=== PATIENT | male | born 1975 | race Caucasian/White ===

== ENCOUNTER 2018-04-10 16:29 | Emergency (ER) | payer OTHER ==
[~2018-04-10] VITALS: Ht 182.9 cm; Wt 86.6 kg
[~2018-04-10 16:29] MED LIST: DIVALPROEX ER PO; RISPERIDONE PO; SEROQUEL XR PO; STRATTERA PO; WELLBUTRIN SR150 M PO
[2018-04-10 16:36] VITALS: Ht 182.9 cm; Wt 86.6 kg
[2018-04-10 16:58] VITALS: BP 130/73
== END 2018-04-10 16:59 | disposition other institution (70) ==
LOC: ED 16:29
DX: Z02.89 Encounter for other administrative examinations (principal)

== ENCOUNTER 2018-04-11 07:06 | Emergency (ER) | payer OTHER ==
[~2018-04-11] VITALS: Ht 182.9 cm; Wt 77.1 kg
[2018-04-11 07:13] VITALS: BP 162/98; Ht 182.9 cm; Wt 77.1 kg
== END 2018-04-11 07:58 | disposition left against medical advice (07) ==
LOC: ED 07:06
DX: R07.89 Other chest pain (principal); F31.9 Bipolar disorder, unspecified; F20.9 Schizophrenia, unspecified; I10 Essential (primary) hypertension; Z86.2 Personal history of diseases of the blood and blood-forming organs and certain disorders involving the immune mechanism; Z88.8 Allergy status to other drugs, medicaments and biological substances

== ENCOUNTER 2018-04-19 13:21 | Emergency (ER) | payer OTHER ==
[~2018-04-19] VITALS: Ht 182.9 cm; Wt 87.1 kg
[2018-04-19 13:36] VITALS: Ht 182.9 cm; Wt 87.1 kg
[2018-04-19 14:41] VITALS: BP 116/78
== END 2018-04-19 14:41 | disposition home or self-care (01) ==
LOC: ED 13:21
DX: S16.1XXA Strain of muscle, fascia and tendon at neck level, initial encounter (principal); S20.211A Contusion of right front wall of thorax, initial encounter; F31.9 Bipolar disorder, unspecified; I10 Essential (primary) hypertension; Z86.2 Personal history of diseases of the blood and blood-forming organs and certain disorders involving the immune mechanism; Z88.8 Allergy status to other drugs, medicaments and biological substances; V43.52XA Car driver injured in collision with other type car in traffic accident, initial encounter; Y93.I9 Activity, other involving external motion; Y92.488 Other paved roadways as the place of occurrence of the external cause; Y99.8 Other external cause status

== ENCOUNTER 2018-04-27 18:54 | Emergency (ER) | payer OTHER ==
[~2018-04-27] VITALS: Ht 180.3 cm; Wt 86.6 kg
[2018-04-27 19:01] VITALS: Ht 180.3 cm; Wt 86.6 kg
[2018-04-27 20:14] VITALS: BP 160/88
== END 2018-04-27 20:14 | disposition home or self-care (01) ==
LOC: ED 18:54
DX: R07.89 Other chest pain (principal); R10.12 Left upper quadrant pain; M54.9 Dorsalgia, unspecified; R11.0 Nausea; F15.90 Other stimulant use, unspecified, uncomplicated; I10 Essential (primary) hypertension; F31.9 Bipolar disorder, unspecified; F20.9 Schizophrenia, unspecified; Z86.2 Personal history of diseases of the blood and blood-forming organs and certain disorders involving the immune mechanism; Z88.8 Allergy status to other drugs, medicaments and biological substances; V49.9XXA Car occupant (driver) (passenger) injured in unspecified traffic accident, initial encounter; W22.11XA Striking against or struck by driver side automobile airbag, initial encounter; Y93.I9 Activity, other involving external motion; Y92.413 State road as the place of occurrence of the external cause; Y99.8 Other external cause status
CPT/HCPCS: J1885; Q0092

== ENCOUNTER 2018-05-09 09:53 | Emergency (ER) | payer OTHER ==
[~2018-05-09] VITALS: Ht 182.9 cm; Wt 77.7 kg
[2018-05-09 10:05] VITALS: BP 152/98
== END 2018-05-09 10:56 | disposition home or self-care (01) ==
LOC: ED 09:53
DX: M54.6 Pain in thoracic spine (principal); L98.498 Non-pressure chronic ulcer of skin of other sites with other specified severity; I10 Essential (primary) hypertension; F31.9 Bipolar disorder, unspecified; Z86.2 Personal history of diseases of the blood and blood-forming organs and certain disorders involving the immune mechanism; Z88.8 Allergy status to other drugs, medicaments and biological substances; Z98.890 Other specified postprocedural states; V43.52XA Car driver injured in collision with other type car in traffic accident, initial encounter; Y93.I9 Activity, other involving external motion; Y92.488 Other paved roadways as the place of occurrence of the external cause; Y99.8 Other external cause status
CPT/HCPCS: J1885

== ENCOUNTER 2018-05-24 22:45 | Emergency (ER) | payer OTHER ==
[~2018-05-24] VITALS: Ht 182.9 cm; Wt 73.0 kg
[2018-05-24 22:54] VITALS: Ht 182.9 cm; Wt 73.0 kg
[2018-05-25 00:59] VITALS: BP 130/85
== END 2018-05-25 00:59 | disposition home or self-care (01) ==
LOC: ED 22:45
DX: M54.9 Dorsalgia, unspecified (principal); V89.2XXA Person injured in unspecified motor-vehicle accident, traffic, initial encounter; Y93.89 Activity, other specified; Y92.89 Other specified places as the place of occurrence of the external cause; Y99.8 Other external cause status

== ENCOUNTER 2018-06-03 00:59 | Emergency (ER) | payer OTHER ==
[~2018-06-03] VITALS: Ht 180.3 cm; Wt 90.7 kg
[2018-06-03 01:15] VITALS: BP 150/91; Ht 180.3 cm; Wt 90.7 kg
== END 2018-06-03 02:19 | disposition home or self-care (01) ==
LOC: ED 00:59
DX: M54.6 Pain in thoracic spine (principal); I10 Essential (primary) hypertension; E11.9 Type 2 diabetes mellitus without complications; F31.9 Bipolar disorder, unspecified; F20.9 Schizophrenia, unspecified; D64.9 Anemia, unspecified; Z88.8 Allergy status to other drugs, medicaments and biological substances
CPT/HCPCS: J1885

== ENCOUNTER 2018-06-06 15:13 | Emergency (ER) | payer OTHER ==
[~2018-06-06] VITALS: Ht 182.9 cm; Wt 73.9 kg
[2018-06-06 15:37] VITALS: BP 157/92; Ht 182.9 cm; Wt 73.9 kg
== END 2018-06-06 19:07 | disposition home or self-care (01) ==
LOC: ED 15:13
DX: M79.5 Residual foreign body in soft tissue (principal); M25.571 Pain in right ankle and joints of right foot; M79.671 Pain in right foot; M79.89 Other specified soft tissue disorders; I10 Essential (primary) hypertension; E11.9 Type 2 diabetes mellitus without complications; F31.9 Bipolar disorder, unspecified; Z86.2 Personal history of diseases of the blood and blood-forming organs and certain disorders involving the immune mechanism; Z98.890 Other specified postprocedural states; Z88.8 Allergy status to other drugs, medicaments and biological substances

== ENCOUNTER 2019-02-03 19:30 | Inpatient (IN) | payer OTHER ==
[~2019-02-03] VITALS: Ht 182.9 cm; Wt 64.9 kg
[2019-02-03 19:48] VITALS: Ht 182.9 cm; Wt 64.9 kg
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
[2019-02-03 20:42] LABS: BASOPHIL % 0.2 % (0-2)
--- NOTE | 2019-02-03 20:42 | NUR ---
PT CURSING AND USING DEROGARTORY LANGUAGE WHEN ASKED FOR URINE SAMPLE.
[2019-02-03 20:44] LABS: CALCIUM 7.4 mg/dL (8.5-10.1); CARBON DIOXIDE 25.1 mmol/L (21-32); CHLORIDE SERUM 104 mmol/L (98-107); CREATININE SERUM 0.7 mg/dL (0.7-1.3); GFR1 > 60 mL/min; GLUCOSE SERUM 146 mg/dL (74-106); PLATELET COUNT 425 x10^3mcL (130-400); POTASSIUM SERUM 3.7 mmol/L (3.5-5.1); RED CELL DISTRIBUTION WIDTH 18.9 % (11.5-14.5); SODIUM SERUM 137 mmol/L (136-145)
[2019-02-03 20:55] LABS: ALKALINE PHOSPHATASE 126 U/L (46-116); ALT/SGPT 26 U/L (16-63); AST/SGOT 21 U/L (15-37); BILIRUBIN TOTAL 0.17 mg/dL (0.20-1.00); TOTAL PROTEIN, SERUM 6.8 g/dL (6.4-8.2)
[2019-02-03 20:56] LABS: ALBUMIN 2.7 g/dL (3.4-5.0); T4(THYROXINE) 4.5 ug/dL (4.7-13.3)
[2019-02-03 21:23] LABS: AMPHETAMINE QUAL UR POSITIVE (See below)
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
--- NOTE | 2019-02-03 22:30 | NUR ---
PT BACK TO RESTING IN BED ON RT SIDE WITH EYES CLOSED WITH BREATHS EVEN AND UNLABORED.
--- NOTE | 2019-02-03 23:20 | NUR ---
PT ON WITH TELE PSYCH PT NOTED TO BE YELLING/CURSING WITH
--- NOTE | 2019-02-03 23:20 | NUR ---
PT AMBULATED TO BATHROOM AND BACK WITH STEADY GAIT.
--- NOTE | 2019-02-04 01:07 | NUR ---
PT RESTING IN BED ON LT SIDE WITH EYES CLOSED AND BREATHS EVEN AND UNLABORED.
--- NOTE | 2019-02-04 01:30 | NUR ---
PT REPORT RECEIVED FROM JARAD THEODORE TO ASSUME PT CARE. PT WOKE UP AND NOTED AMBULATING DOWN HALLWAY TOWARDS RESTROOM WITH STEADY GAIT, RESTROOM LOCKED AND PT STATES THAT HE NEEDS TO USE THE RESTROOM RIGHT NOW. UPON ENTERING ROOM TO PROVIDE PT WITH URINAL PT NOTED TO BE URINATING IN THE SINK. PT ASSISTED BACK INTO BED IN VIEW OF NURSE'S STATION.
--- NOTE | 2019-02-04 02:30 | NUR ---
PT RESTING IN A POSITION OF COMFORT, REFUSING VITAL SIGNS AT THIS TIME. CHEST RISE AND FALL NOTED.
--- NOTE | 2019-02-04 03:30 | NUR ---
PT CONTINUES TO REST IN A POSITION OF COMFORT IN VIEW OF NURSE'S STATION. RESP EVEN AND UNLABORED, NO ACUTE DISTRESS NOTED.
--- NOTE | 2019-02-04 04:30 | NUR ---
PT REPOSITIONS SELF FOR COMFORT, CONTINUES TO REFUSE VITAL SIGNS. PT RESP EVEN AND UNLABORED, NO ACUTE DISTRESS NOTED.
--- NOTE | 2019-02-04 05:30 | NUR ---
PT RESTING WITH EYES CLOSED, CHEST RISE AND FALL NOTED. PT IN VIEW OF NURSE'S STATION FOR SAFETY.
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
--- NOTE | 2019-02-04 05:50 | NUR ---
ORIGINAL 5150 PLACED IN CHART.
--- NOTE | 2019-02-04 06:37 | NUR ---
PT AMBULATED TO RESTROOM WITH STEADY GAIT. WAKES EASILY TO VERBAL AND TACTILE STIMULI.
--- NOTE | 2019-02-04 07:10 | NUR ---
REPORT RECEIVED FROM KVNG PEREZ RN I WILL BE RESUMING CARE OF PT AT THIS TIME
--- NOTE | 2019-02-04 07:28 | NUR ---
UPON ENTERING RM, PT ASLEEP BUT AROUSABLE, PT IN NAD, VSS, SAFETY PRECAUTIONS IN PLACE, PT WAS COOPERATIVE WHEN TAKING VITALS, BED LOCKED AND IN LOWEST POSITION, BOTH SIDE RAILS UP, PT IN VIEW OF NURSE STATION
--- NOTE | 2019-02-04 07:31 | NUR ---
BREAKFAST TRAY PROVIDED
--- NOTE | 2019-02-04 08:31 | NUR ---
PT MEDICATED PER MD ORDER, PT IN NAD, PT CALM AND COOPERATIVE, RESPS E/U, VSS, WILL CONTINUE TO MONITOR
--- NOTE | 2019-02-04 09:14 | NUR ---
Received intake and call from Donna THEODORE, will help in facilitating placement
--- NOTE | 2019-02-04 09:42 | NUR ---
REPORT GIVEN TO NATALI CORBIN RN WHO IS RESUMING CARE OF PT AT THIS TIME
--- NOTE | 2019-02-04 09:46 | NUR ---
REPORT RECEIVED FROM DIONNE THEODORE TO ASSUME CARE OF PT. PT IN POSTION OF COMFORT. VISIBLE CHEST RISE AND FALL. VSS. RESP E/U. PT COOPERATIVE AT THIS TIME. WILL CONTINUE TO MONITOR.
--- NOTE | 2019-02-04 11:56 | NUR ---
PT IN POSITION OF COMFORT. VISIBLE CHEST RISE AND FALL. WILL CONTINUE TO MONITOR.
--- NOTE | 2019-02-04 12:22 | NUR ---
PT BROUGHT LUNCH TRAY. PT STS THAT HE IS NOT HUNGRY AT THIS TIME. VSS. RESP E/U. WILL CONTINUE TO MONITOR.
--- NOTE | 2019-02-04 13:03 | NUR ---
PT SITTING UP RIGHT EATING LUNCH. WHEN ASKED IF PT NEEDS ANYTHING PT STS "NO I AM OKAY". VSS. RESP E/U. WILL CONTINUE TO MONITOR.
--- NOTE | 2019-02-04 17:19 | NUR ---
PT PROVIDED DINNER. PT YELLING STS HE DOES NOT WANT IT. VSS. RESP E/U. WILL CONTINUE TO MONITOR.
--- NOTE | 2019-02-04 18:10 | NUR ---
PT FINISHED 85% OF DINNER TRAY. PT NOW SLEEPING. VSS. RESP E/U. WILL CONTINUE TO MONITOR.
--- NOTE | 2019-02-04 19:04 | NUR ---
REPORT GIVEN TO GABRIEL SMITH RN TO ASSUME CARE OF PT.
--- NOTE | 2019-02-04 19:25 | NUR ---
REPORT RECEIVED FROM NATALI CORBIN RN I WILL BE RESUMING CARE OF PT AT THIS TIME
--- NOTE | 2019-02-04 19:45 | NUR ---
PT ASLEEP BUT AROUSABLE IN POSITION OF COMFORT, RESPS E/U, VSS, PT CALM AND COOPERATIVE WHEN TAKING VITALS, SAFETY PRECAUTIONS IN PLACE, PT IN VIEW OF NURSE STATION, WILL CONTINUE TO MONITOR
--- NOTE | 2019-02-04 19:58 | NUR ---
PT MEDICATED PER EMAR AND MD ORDER
--- NOTE | 2019-02-04 20:00 | NUR ---
PT RESTING WITH EYES CLOSED, AROUSABLE TO TOUCH, RESP E/U, SKIN INTACT, WARM AND DRY. PT IN VIEW OF NURSE STATION, SUICIDE AND SAFETY PRECAUTIONS IN PLACE.
--- NOTE | 2019-02-04 20:13 | NUR ---
PT AMBULATORY WITH STEADY GAIT TO RESTROOM ACCOMPANIED BY MYSELF
--- NOTE | 2019-02-04 20:15 | NUR ---
100% DINNER TRAY EATEN
--- NOTE | 2019-02-04 20:18 | NUR ---
RECEIVED REPORT FROM DIONNE VILLANUEVA RN, I WILL ASSUME FURTHER CARE OF THIS PATIENT.
--- NOTE | 2019-02-04 20:18 | NUR ---
REPORT GIVEN TO LIANA CAVAZOS RN WHO IS RESUMING CARE OF PT AT THIS TIME
--- NOTE | 2019-02-04 22:15 | NUR ---
AWOKE PATIENT TO REASSESS, PT AROUSABLE TO TOUCH, PT VERY SLEEPY AT THIS TIME, BUT OPENED EYES, GRITTED TEETH AND SPOKE IN A LOUD VOICE ANGRILY, PT DENIES ANY PAIN. PT ADMITS TO SI, NO HI. PATIENT DOES NOT HAVE A PLAN AT THIS TIME,. PT AAOX3, UNABLE TO SPECIFY DATE OR TIME. NO DISTRESS NOTED AT THIS TIME. RESP E/U, SKIN INTACT PINK WARM AND DRY. PT IN VIEW OF NURSE STATION, SI PRECATIONS IN PLACE. WILL CONT TO MONITOR.
--- NOTE | 2019-02-04 23:54 | NUR ---
PT RESTING IN POSITION OF COMFORT WITH EYES CLOSED, RESP E/U. PT IN VIEW OF NURSE STATION FOR SAFETY. WILL CONT TO MONITOR.
--- NOTE | 2019-02-05 00:05 | NUR ---
GAVE REPORT KELLEY THEODORE MEDSURG WHO WILL ASSUME FURTHER CARE OF THIS PATIENT.
[2019-02-05 00:42] VITALS: BP 139/96
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
--- NOTE | 2019-02-05 01:00 | NUR ---
PT RECIEVED FROM JESÚS THEODORE. PT RESTING IN BED AT THIS TIME. DENIES PAIN OR DISCOMFORT. SITTER AT BEDSIDE. BREATHING E/U ON RA. NO SIGNS OF ACUTE DISTRESS NOTED AT THIS TIME. BED AT LOWEST POSITION. CALL LIGHT WITHIN REACH. WILL CONTINUE TO MONITOR.
--- NOTE | 2019-02-05 04:12 | NUR ---
At this time there are still no vacancy at any of the designated facilities , charge nurse Guanaco THEODORE made aware.
[2019-02-05 05:05] VITALS: BP 127/91
--- NOTE | 2019-02-05 06:40 | NUR ---
PT RESTING IN BED AT THIS TIME. NO S/S OF PAIN OR DISCOMFORT NOTED. BREATHING E/U ON RA. NO SIGNS OF ACUTE DISTRESS NOTED. SITTER AT BEDSIDE. BED AT LOWEST POSITION. CALL LIGHT WITHIN REACH. WILL ENDORSE TO DAY NURSE.
--- NOTE | 2019-02-05 07:10 | NUR ---
RECEIVED PATIENT IN BED, APPEARS TO BE RESTING, AROYSED EASILY TO NAME. APPEARS TO BE AGITATED WANTING HIS BREAKFAST TRAY. EXPLAINED TO PATIENT THAT HIS TRAY IS ON ITS WAY. RESP EVEN AND UNLABORED, LUNGS CLEAR ON ROOM AIR. ABD SOFT BOWEL SOUNDS ACTIVE. PER PATIENT HIS LAST BM WAS 1 KIMBERLY AGO. VOIDING WELL, USING URINAL. 1-1 SITTER AT BEDSIDE. DENIES HAVING ANY SUICIDAL THOUGHTS AT THIS TIME. PATIENT STATES, "I JUST FEEL SAD." WILL CONTINUE TO MONITOR.
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
[2019-02-05 07:47] VITALS: BP 134/104; BP 134/401
--- NOTE | 2019-02-05 07:56 | NUR ---
ATIVAN IM GIVEN ORDERED. PATIENT APPEARS CALM, CONSUMD 100% OF BREAKFAST. COOPERATIVE AND CALM AT THIS TIME. 1-1 SITTER AT BEDSIDE. PATIENT APPEARS TO BE RESTING WELL.
--- NOTE | 2019-02-05 13:47 | NUR ---
ACCOUNT LEADER REQUESTING TO DRAW PATIENT'S LABS, PATIENT REFUSED EARLIER THIS AM. PATIENT REMAINS IN BED WITH 1-1 SITTER AT BEDSIDE. AGAIN PATIENT REFUSED LAB DRAW. WILL NOTIFY DR TAYLOR.
--- NOTE | 2019-02-05 15:39 | NUR ---
PATIENT APPEARS TO BE RESTING WELL. 1-1 SITTER AT BEDSIDE.
[2019-02-05 16:47] VITALS: BP 146/91
--- NOTE | 2019-02-05 17:57 | NUR ---
NO CHANGE IN CONDITION NOTED THIS SHIFT. 1-1 SITTER AT BEDSIDE. PATIENT IS SITTING UP IN BED EATING DINNER TRAY. APPEARS TO HAVE RESTED WELL THIS AFTERNOON.
--- NOTE | 2019-02-05 20:00 | NUR ---
EYES CLOSED, EASILY AWAKENED. ORIENTED TO PERSON, PLACE, TIME. BREATHING EVEN AND UNLABORED. WITHDRAWN. NO IV ACCESS. 5150 HOLD. SITTER IN ROOM.
--- NOTE | 2019-02-05 20:06 | NUR ---
REFUSED VITAL SIGNS TAKING, INFORMED DR. LO.
--- NOTE | 2019-02-05 22:12 | NUR ---
EYES CLOSED, BREATHING EVEN AND UNLABORED. BED IN LOWEST POSITION. SITTER IN ROOM.
--- NOTE | 2019-02-05 23:22 | NUR ---
EYES CLOSED, BREATHING UNLABORED. SITTER IN ROOM. ENDORSED TO NURSE LD
--- NOTE | 2019-02-05 23:23 | NUR ---
CARE ASSUMED. PT RESTING COMFORTABLY IN BED. NO ACUTE DISTRESS NOTED. SITTER AT BEDSIDE. WILL CONTINUE TO MONITOR.
--- NOTE | 2019-02-06 02:30 | NUR ---
PT WANTING TO LEAVE THE HOSPITAL TO SMOKE. EXPLAINED THAT PT IS CURRENTLY ON A 5150 HOLD. EXPLAINED NO SMOKING ALLOWED IN THE HOSPITAL. PT RETURNED TO THE ROOM AND LIT CIGAR. CIGAR AND MOSAIC LAYER CONFISCATED AT THIS TIME. SITTER AT BEDSIDE. WILL CONTINUE TO MONITOR.
--- NOTE | 2019-02-06 06:16 | NUR ---
PT LEFT THE FLOOR AMA. POLICE CALLED. AND JOSE KIRBY MADE AWARE.
== END 2019-02-06 06:16 | disposition home or self-care (01) | DRG 812 ==
LOC: ED 19:30 → MU 02-04 19:34
PROVIDERS: Emergency Medicine; ADMIT General Practice
DX: T43.621A Poisoning by amphetamines, accidental (unintentional), initial encounter (principal); G92 Toxic encephalopathy; E44.0 Moderate protein-calorie malnutrition; F20.9 Schizophrenia, unspecified; E83.51 Hypocalcemia; E11.9 Type 2 diabetes mellitus without complications; D64.9 Anemia, unspecified; E02 Subclinical iodine-deficiency hypothyroidism; F31.9 Bipolar disorder, unspecified; I10 Essential (primary) hypertension; Z88.8 Allergy status to other drugs, medicaments and biological substances; Y92.89 Other specified places as the place of occurrence of the external cause; Z68.22 Body mass index [BMI] 22.0-22.9, adult
CPT/HCPCS: G0378; G0480; J2060

== ENCOUNTER 2019-02-06 06:46 | Inpatient (IN) | payer OTHER ==
[~2019-02-06] VITALS: Ht 172.7 cm; Wt 68.0 kg
--- NOTE | 2019-02-06 07:02 | NUR ---
PT PRESENTS TO ED DUE TO ELOPING OUT OF THE HOSPITAL WHILE ON A 5150. PT WAS OFF CAMPUS FOR OVER 30 MINUTES AND BROUGHT BACK BY LIBBY FRANCISCO. PT PRESENTS TO THE ED COMBATIVE AND PLACED IN BL WRIST AND ANKLE RESTRAINTS. PT IS ANGRY AND YELLING. PT STATES HE IS HUNGRY, A SANDWHICH WAS PROVIDED WELL MILK AND APPLE JUICE. MEAL TRAY ALSO ORDERED FOR PT. PT AXO X4. PT SPEAKING IN CLEAR AND FULL SENTENCES. PT DENIES TAKING ANY MEDICATIONS. PT ADMITS TO HEARING VOICES IN HIS HEAD. PT DENIES WANTING TO HURT HIMSELF. PT STATES HE IS HOMELESS. NAD AT THIS TIME. AWAITING MSE. RESP E/U.
--- NOTE | 2019-02-06 07:07 | NUR ---
UNABLE TO GET BP UPON TRIAGE DUE TO PT AGITATION. PRIMARY RN DIONNE AWARE REPORT GIVEN TO DIONNE THEODORE
--- NOTE | 2019-02-06 07:10 | NUR ---
REPORT RECEIVED FROM SERINA ARENAS RN I WILL NOW BE RESUMING CARE OF PT AT THIS TIME
--- NOTE | 2019-02-06 07:11 | NUR ---
UPON ENTERING RM, PT ON SOFT BILATERAL WRIST AND BILATERAL ANKLE RESTRAINTS, VSS, RESPS E/U, PSYCH TELE IN PT RM, PT AAOX4, PT MUMBLING TO HIMSELF, PT CHANGED INTO GOWN WITH ASSITANCE FROM [facility] EMT, SAFETY PRECAUTIONS IN PLACE, BOTH GURNEY SIDE RAILS UP, BED LOCKED AND IN LOWEST POSITION, PT IN VIEW OF NURSE STATION, WILL CONTINUE TO MONITOR
--- NOTE | 2019-02-06 07:12 | NUR ---
REFER TO NONVIOLENT RESTRAINT FLOW SHEET IN PT CHART
--- NOTE | 2019-02-06 07:16 | NUR ---
RESTRAINT FORMED SIGNED BY MD QUEVEDO AND Ric AND PLACED IN PT CHART
--- NOTE | 2019-02-06 07:24 | NUR ---
PT BELONGINGS PLACED IN BELONGING BAG AND PLACED IN RADIO RM-3 BAGS TOTAL, ALL LABELED
--- NOTE | 2019-02-06 08:25 | NUR ---
PT NOTED TO BE YELLING AND THRASHING IN GURNEY AND THREATENING STAFF MD QUEVEDO MADE AWARE
[2019-02-06 09:08] LABS: AMPHETAMINE QUAL UR NONE DETECTED (See below)
--- NOTE | 2019-02-06 09:16 | NUR ---
PT ASLEEP BUT AROUSABLE, RESPS E/U, VSS, PT IN VIEW OF NURSE STATION, WILL CONTINUE TO MONITOR
--- NOTE | 2019-02-06 09:58 | NUR ---
DILMA AND MILK PROVIDED, RESPS E/U, VSS
--- NOTE | 2019-02-06 10:00 | NUR ---
+PMSC TO BUE AND BLE, SKIN INTACT
--- NOTE | 2019-02-06 10:32 | NUR ---
CC aware of PT and received report from PM shift. W ill Continue to follow up with surrounding facilities to locate psych placement
--- NOTE | 2019-02-06 11:23 | NUR ---
SALES CONSULTANT RESIDENTIAL MANAGER CALLED ME , LADY TO INFORM ME THAT THERE IS NO SITTER FOR THIS PT TO GO UPSTAIRS.
--- NOTE | 2019-02-06 11:30 | NUR ---
PHARMACY NOTIFIED OF NO WELLBUTIN IN ED PIXUS, THEY INFORMED ME THEY WILL DROP IT OFF TO ED
--- NOTE | 2019-02-06 11:45 | NUR ---
PT ASLEEP BUT AROUSABLE IN POSITION OF COMFORT, RESPS E/U, VSS, WILL CONTINUE TO MONITOR
--- NOTE | 2019-02-06 12:40 | NUR ---
PHARMACY NOTIFIED ME THAT THEY DO NOT HAVE STRATTERA MEDICATION, ANALYSIS EVALUATOR, MARIANELA [phone] CONTACTED, NO ANSWER, VOICEM[place] [facility] AND MY NAME
--- NOTE | 2019-02-06 12:44 | NUR ---
CORRECTION, MEDICAL ASSEMBLER, MUTUC
--- NOTE | 2019-02-06 12:53 | NUR ---
LUNCH TRAY PROVIDED
--- NOTE | 2019-02-06 12:55 | NUR ---
SPOKE WITH STANLEY BEAR, SHE INFORMED ME SHE WILL D/C THE STRATTERA ON PT EMAR
--- NOTE | 2019-02-06 13:00 | NUR ---
+PMSC TO BUE AND BLE, SKIN INTACT
--- NOTE | 2019-02-06 13:56 | NUR ---
PT SLEEPING AT THIS TIME WITH RESTRAINTS IN PLACE AND VSS. WILL CONTINUE TO MONITOR
--- NOTE | 2019-02-06 14:18 | NUR ---
PT ASLEEP IN POSITION OF COMFORT, RESPS E/U, VSS, NSR ON CM,PT IN VIEW OF NURSE STATION
--- NOTE | 2019-02-06 15:40 | NUR ---
PT ASLEEP BUT AROUSABLE IN POSITION OF COMFORT, RESPS E/U, VSS
--- NOTE | 2019-02-06 16:00 | NUR ---
PT SCREAMING AND YELLING AT STAFF WELL SPITTING, PT STATING "I WANT TO TALK TO MY DAD" PT INFORMED WE WILL CONTACT HIS DAD, PT CONTINUES TO YELL BEING UNCOOPERATIVE AND THRASHING IN BED
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
--- NOTE | 2019-02-06 16:03 | NUR ---
PT THREATENING STAFF YELLING "IM GOING TO GET OUT OF THESE RESTRAINTS AND FUCKING KILL YOU" STANLEY KAUR PAGED AND MADE AWARE.
--- NOTE | 2019-02-06 16:04 | NUR ---
PT NOTED TO BE BITING RESTRAINTS OFF WITH HIS TEETH, ER MD MADE AWARE
--- NOTE | 2019-02-06 16:47 | NUR ---
+PMSC TO BUE AND BLE, SKIN INTACT
--- NOTE | 2019-02-06 18:15 | NUR ---
PT MEDICATED PER ORDERS WITH GEODON IM PER ORDERS PT FELL ASLEEP, RESP EVEN AND UNLABORED SIDERAILS UP PT CONT WITH SOFT RESTRAINTS ON DUE TO PT WAKES UP AND HE WILL TRY TO GET OOB. PT IS IN FRONT OF NURSES STATION WITH CLOSE OBSERVATION. PT IS ON CM
--- NOTE | 2019-02-06 19:45 | NUR ---
ATTEMPTED TO CALL REPORT TO ICU AND THEY STATE HE WILL CALL BACK IN 10 MIN
--- NOTE | 2019-02-06 19:54 | NUR ---
REPORT CALLED TO CRISTINA THEODORE
--- NOTE | 2019-02-06 19:57 | NUR ---
REPORT CALLED TO CRISTINA THEODORE
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
--- NOTE | 2019-02-06 20:10 | NUR ---
BELONGINGS PLACED IN ICU BELONGING STORAGE CABINET.
[2019-02-06 21:21] VITALS: BP 127/81
--- NOTE | 2019-02-06 21:40 | NUR ---
PT VOIDED 500 ML OF CLEAR DANITA URINE.
--- NOTE | 2019-02-06 22:21 | NUR ---
PT ANXIOUS/AGITATED AT THIS TIME, YELLING AT STAFF. WILL ADMINISTER ATIVAN PER EMAR.
[2019-02-06 23:05] VITALS: BP 117/58
--- NOTE | 2019-02-07 01:53 | NUR ---
PT ANXIOUS/AGITATED AT THIS TIME, YELLING AT STAFF. WILL ADMINISTER ATIVAN PER EMAR.
[2019-02-07 03:08] VITALS: BP 101/56
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
--- NOTE | 2019-02-07 07:14 | NUR ---
GAVE REPORT TO ARBEN SONG. UPDATES GIVEN, QUESTIONS ANSWERED. ENDORSED CARE.
--- NOTE | 2019-02-07 07:35 | NUR ---
RECEIVED PT'S REPORT FROM LEAVING NURSE. PT IS AWAKE, ALERT, RESTLESS, AND TRYING TO PULL OFF RESTRAINTS AND OTHER MONITOR WIRE BY HIS TEETH. PT OPENS EYES, GARBLED SPEECH. ASSISTED PT SITTING UP AND FED HIM BREAKFAST. NO PROBLEM SWALLOWING NOTED AT THIS TIME. PT BREATHING ON RA EVEN, UNLABORED. LAST DOSE ATIVAN WAS GIVEN AT 6 AM. IV SITE SALINE LOCK.
--- NOTE | 2019-02-07 08:02 | NUR ---
[facility] still actively working on finding placement for this pt. Will continue to f/u with contracted facilities. Will contact with any updates. No openings per police shift commander.
[2019-02-07 08:06] VITALS: BP 125/82
[2019-02-07 09:11] VITALS: Ht 172.7 cm; Wt 68.0 kg
--- NOTE | 2019-02-07 09:33 | NUR ---
PT IS RESTLESS, BIT OFF THE WIRE OF WAX BLENDER, AND TRIED TO REMOVE HIS RESTRAINTS BY HIS TEETH. ATIVAN GIVEN PER PRN ORDER.
--- NOTE | 2019-02-07 10:39 | NUR ---
PT KEPT TO REMOVE MONITOR AND BITE THE WIRE. PER RESIDENTIAL CONCIERGE DESIRE CONFIRMED, IT IS OK TO CHECK PT'S VS Q4H.
[2019-02-07 12:30] VITALS: BP 127/84
--- NOTE | 2019-02-07 13:30 | NUR ---
PT TRYING TO GET OUT OF BED, PULLING RESTRAINTS, BECOMED RESTLESS AND AGITATED AGAIN. ATIVAN 4MG IVP GIVEN PER PRN ORDER.
[2019-02-07 16:30] VITALS: BP 120/85
--- NOTE | 2019-02-07 18:55 | NUR ---
GEODON PO GIVEN BUT PT IS RESTLESS, AGITATED AND TRY TO GET OUT OF RESTRAINTS. ATIVAN 4MG IVP GIVEN PER PRN ORDER. WILL ENDORSE PT'S CARE TO RECEIVING NURSE.
--- NOTE | 2019-02-07 19:10 | NUR ---
RECEIVED REPORT FROM ARBEN SONG. PT IS ALERT AND RESPONSIVE TO VERBAL STIMULUS. PT DOES NOT RESPOND TO ORIENTATION QUESTIONS. GARBLED SPEECH. LETHARGIC. PUPILS REACTIVE TO LIGHT. PT IS BREATHING E.U ON RA. LUNG SOUNDS CLEAR TO BILATERAL UPPER LOBES, DIMINISHED TO BILATERAL LOWER LOBES. S1 S2 HEART SOUNDS AUSCULTATED. SKIN IS WARM AND CONSISTENT WITH ETHNICITY. CAP REFILL <3 SECS X4. PERIPHERAL IV TO LEFT UPPER ARM. ABD IS SOFT AND FLAT WITH ACTIVE BOWEL SOUNDS X4Q. PT INCONTINENT TO URINE, AND BEDDING IS WET. WILL CONTINUE TO MONITOR. ALL QUESTIONS AND CONCERNS ANSWERED.
--- NOTE | 2019-02-07 20:30 | NUR ---
MASCORRO CATHETER INSERTED PER DR. ZUÑIGA.
--- NOTE | 2019-02-08 05:37 | NUR ---
PATIENT'S BLOOD SUGAR 73. PT PROVIDED WITH JUICE WITH SUGAR.
[2019-02-08 07:25] VITALS: BP 141/96
--- NOTE | 2019-02-08 07:25 | NUR ---
PATIENT AWAKE BUT LETHARGIC; PATIENT ORIENTED TO SELF WITH GARBLED SPEECH AND EPISODES OF CONFUSION. PATIENT DENIES PAIN, SHORTNESS OF BREATH OR NAUSEA/VOMITING AT THIS TIME. IV SITE TO LEFT UPPER ARM WITH DRESSING IN PLACE. MASCORRO CATH TO GRAVITY DRAINING DANITA URINE. TELE IS HOOKED UP TO THE PATIENT WHICH SHOWS NORMAL SINUS RHYTHMS AT THIS TIME. CALL LIGHT WITHIN REACH. SIDE RAILS UP X3. BED IS AT LOWEST POSITION, AND ALARM IS ON. PATIENT IS ON FOUR POINT SOFT RESTRAINTS TO PREVENT THE PATIENT FROM HARMING HIMSELF AND PULLING OUT IV SITE AND LINES. WILL RELEASE THE RESTRAINTS FOR ROM Q2HR/PRN.
--- NOTE | 2019-02-08 08:38 | NUR ---
THE PATIENT IS SO AGGRESSIVE AND AGITATED; PATIENT IS YELLING, ATTEMPTING TO JUMP OUT OF BED AND KICKING THE BED. ATIVAN 4MG IVP MEDICATED TO THE PATIENT ORDERED.
--- NOTE | 2019-02-08 08:53 | NUR ---
KAIAWHINA STANLEY IN TO SEE THE PATIENT. UPDATE PROVIDED TO KAIAWHINA.
[2019-02-08 11:34] VITALS: BP 131/84
[2019-02-08 15:43] VITALS: BP 144/97
--- NOTE | 2019-02-08 16:46 | NUR ---
UNIQUE FADI - ARTS ADMINISTRATOR CALLED BACK AND WAS PROVIDED THE PATIENT'S INFORMATION. UNIQUE RELEASED THE CASE WITH .
--- NOTE | 2019-02-08 16:50 | NUR ---
THE IV SITE AT LEFT UPPER ARM LEAKING. THE HEPLOCK REMOVED WITH CATH TIP INTACT. NEW IV SITE INSERTED TO RIGHT UPPER ARM WITH #20G. THE SITE WAS SECURED AND HIDDEN SO THAT THE PATIENT COULD NOT REMOVE THE HEPLOCK.
--- NOTE | 2019-02-08 17:25 | NUR ---
PATIENT WAS OFFERED A BED BATH AND MASCORRO CARE, BUT PATIENT REFUSED ALL.
--- NOTE | 2019-02-08 19:00 | NUR ---
RECIEVED REPORT FROM ARBEN METCALF. NURSING UPDATES. POC DISCUSSED. REMOVED LOWER RESTRAINTS AND PT IN AGREEMENT. WILL CONT TO MONITOR. SEE SHIFT ASSESSMENT FOR ASSESSMENT.
--- NOTE | 2019-02-08 19:00 | NUR ---
REPORT GIVEN TO KAMI BURRIS RN. CONCERNS ADDRESSED.
--- NOTE | 2019-02-08 19:53 | NUR ---
[facility] is still aware of patient and is waiting for patient to be downgraded to medr in order to continue to look for bed placement. Facilities will not be able to accommodate patient if patient is still in ICU.
[2019-02-08 20:00] VITALS: BP 147/110
--- NOTE | 2019-02-08 21:00 | NUR ---
PT W/ BM. SMALL FORMED BROWN. PT TOLD TO NOTIFY STAFF IF NEEDING TO BM. PT AGREED. NO S/S OF BLEEDING.
--- NOTE | 2019-02-08 21:00 | NUR ---
PT W/ AGITATION. CALMING MEASURES IN PLACE. PT STILL AGITATED. PRN MEDICATION ATIVAN (SEE MAR) ADM. PT RESTING CALMLY IN BED. WILL CONT TO MONITOR.
--- NOTE | 2019-02-08 21:30 | NUR ---
PT RESTING CALMLY IN BED. WILL CONT TO MONITOR.
[2019-02-08 23:42] VITALS: BP 143/92
--- NOTE | 2019-02-09 | NUR ---
PT RESTING CALMLY IN BED. WILL CONT TO MONITOR
--- NOTE | 2019-02-09 01:10 | NUR ---
PT W/ AGITATION. CALMING MEASURES IN PLACE W/ NO AVAIL. PRN ATIVAN *(SEE MAR)* ADM. PT NOW RESTING CALMLY IN BED. WILL CONT TO MONITOR.
--- NOTE | 2019-02-09 02:32 | NUR ---
PT RESTING, AGITATED. CALMLY MEASURES IN PLACE. PT ATTEMPTED TO PULL OUT F/C BUT STILL SECURE AND INTACT. MINIMAL DRAINAGE NOTED.
[2019-02-09 03:05] VITALS: BP 142/95
--- NOTE | 2019-02-09 04:13 | NUR ---
PT LINENS CHANGED. PT ATTEMPTED TO SPIT PHLEM/MUCOUS OUT. SCANT MUCOUS/PHELM EXPELLED ONTO BEDSHEET. PT INSTRUCTED NOT TO SPIT AT STAFF. WILL ENDORSE. PT RESTING CALMY IN BED NOW. NO ACUTE CHANGES.
--- NOTE | 2019-02-09 05:31 | NUR ---
SPORTS AGENT @ BEDSIDE OF AM [facility].
[2019-02-09 05:52] LABS: PLATELET COUNT 467 x10^3mcL (130-400)
[2019-02-09 05:56] LABS: METAMYELOCTE 1 % (0-2); MONOCYTE 4 % (0-7); SEGMENTED NEUTROPHILS 70 % (37-75); rbc morphology (normal/abnorm) ABNORMAL (NORMAL)
[2019-02-09 05:57] LABS: PLATELET MORPHOLOGY PLATELETS INCREASED; ovalocyte/elliptocyte 1+
--- NOTE | 2019-02-09 06:09 | NUR ---
PT W/ LOW BS 69 RECHECKED TO 69. GIVEN ORAL APPLE JUICE W/ SUGAR AND WILL REASSESS BS LEVELS IN 30-60MINS. NO S/S OF HYPOGLYCEMIA.
[2019-02-09 06:10] LABS: CALCIUM 8.5 mg/dL (8.5-10.1); CARBON DIOXIDE 29.1 mmol/L (21-32); CHLORIDE SERUM 103 mmol/L (98-107); CREATININE SERUM 0.8 mg/dL (0.7-1.3); GFR1 > 60 mL/min; GLUCOSE SERUM 76 mg/dL (74-106); POTASSIUM SERUM 4.4 mmol/L (3.5-5.1); SODIUM SERUM 140 mmol/L (136-145)
--- NOTE | 2019-02-09 06:34 | NUR ---
PT C/O OF HAVING TO URINATE BUT UNABLE TO. PT W/ 200 OUTPUT FOR SHIFT. INITATED BLADDER SCAN. BLADDER SCAN MAX VOLUME ESTIMATED 800ML. F/C CATH INSPECTED FOR KINKS/LEAKAGE W/ NO AVAIL. F/C REMOVED AND REPLACED. INTIATED NEW F/C INSERTION. URINE OUTPUT DANITA DETECTED. BALLOON INFLATED. AWAITING URINE DRAINAGE OUTPUT. PT TOLERATED WELL AND REPORTED RELEAF.
--- NOTE | 2019-02-09 06:57 | NUR ---
PT W/ AGITATION. CALMING MEASURES IN PLACE W/ NO AVAIL. PT ADM PRN ATIVAN (* SEE MAR)*. PT TOLERATED WELL. PT NOW RESTING CALMLY IN BED. NO S/S OF DISTRESS. WILL ENDORSE.
--- NOTE | 2019-02-09 07:09 | NUR ---
ENDORSED BS 69. ARBEN RANGEL STATED WILL TAKE HIS BS AFTER HIS BREAKFAST. NO S/S OF HYPOGLYCEMIA.
--- NOTE | 2019-02-09 07:10 | NUR ---
REPORT RECEIVED FROM DAYTON THEODORE. WILL CARRY OUT CARE FOR THE SHIFT.
--- NOTE | 2019-02-09 07:13 | NUR ---
ENDORSED CARE OF PT TO CLAIRE THEODORE. ALL QUESTIONS ANSWERED. POC DISCUSSED. NURSING UPDATES.
--- NOTE | 2019-02-09 07:15 | NUR ---
PT RECEIVED RESTING IN BED, AWAKE & ALERT. BED WHEELS LOCKED, BED IN LOWEST POSITION, HOB 30*. PT ABLE TO FOLLOW SOME COMMANDS AND ANSWERS SOME QUESTIONS BUT NOT ALL. PT BECOMES AGITATED AT TIMES AND TRIES TO GET OUT OF BED BUT IS EASY TO SETTLE AT THIS TIME WITH GENTLE REMINDER TO STAY IN BED. LUNG SOUNDS CLEAR BILATERALLY, NO RESPIRATORY DISTRESS NOTED. PT NOT ON CONTINUOUS VITAL SIGN MONITORING AT THIS TIME DUE TO PERSISTENT REMOVAL OF CORDS AND ANYTHING CONNECTED TO HIM. VITAL SIGNS SPOT MONITORED Q4H AT THIS TIME AND PRN. S1 S2 PRESENT ON AUSCULTATION, NO MURMUR, REGULAR RATE & RHYTHM. CHEST WALL IS STABLE. SKIN IS INTACT, RIGHT UPPER ARM PERIPHERAL IV IS SALINE LOCKED AND PATENT, EASILY FLUSHED. BOWEL SOUNDS ARE ACTIVE, AND ABDOMEN IS SOFT, FLAT, AND NONTENDER. PT HAS RESTRAINTS TO WRISTS AT THIS TIME, AND WAS EDUCATED ON PURPOSE. WILL CARRY OUT CARES FOR THE SHIFT AND CONTINUE MONITORING PT AND ASSESSING FOR RESTRAINT NEED.
[2019-02-09 07:29] VITALS: BP 139/89
--- NOTE | 2019-02-09 08:20 | NUR ---
PT RESTING IN BED WITH EYES CLOSED AT THIS TIME.
--- NOTE | 2019-02-09 08:48 | NUR ---
PT WOKE UP AND WAS HEARD SAYING "I'M GONNA KILL THESE MOTHERF*CKERS."
--- NOTE | 2019-02-09 09:03 | NUR ---
PT OBSERVED TALKING TO SELF AND ATTEMPTING TO GET OUT OF BED. RN REMINDED PT TO STAY IN BED AT THIS TIME. PT STILL TALKING TO SELF BUT ISN'T TRYING TO GET OUT OF BED AT THIS TIME. WILL CONTINUE MONITORING.
--- NOTE | 2019-02-09 09:15 | NUR ---
PT SITTING UP IN BED AT THIS TIME, NOT ATTEMPTING TO GET OUT OF BED.
--- NOTE | 2019-02-09 10:54 | NUR ---
PT TRANSFERRED TO [facility]. PT STABLE, COMPLIANT WITH MOST NURSING DEMANDS AND ANSWERS SOME QUESTIONS. PT WAS DROWSY, BUT AROUSABLE TO TOUCH. PT ON BILATERAL WRIST RESTRAINTS. CARE ENDORSED TO SHON THEODORE.
[2019-02-09 11:00] VITALS: BP 111/79
--- NOTE | 2019-02-09 11:21 | NUR ---
S/W Maria A (RN) for patient. Stated to Maria A that patients 5150 has expires. If patient gets new re-evaluation for psych and still needs placement and [id number], please have new [phone] fax to [phone]
--- NOTE | 2019-02-09 11:25 | NUR ---
RECEIVED PT FROM MOLD INJECTOR CLAIRE. PT RESTING IN BED WITH BOTH EYES CLOSED. AROUSABLE TO VERBAL STIMULI, DROWSY. TUGGING ON MASCORRO TRYING TO REMOVE LINE. BILATERAL SOFT WRIST RESTRAINT IN PLACE. PULSES +2 BUE/BLE. NO EDEMA. CAP REFILLS <3 SEC. SKIN WARM, DRY, INTACT, SITE SURROUNDING RESTRAINTS BUE WARM, DRY, INTACT. SKIN COLOR NORMAL FOR ETHNICITY. NO S/S OF ACUTE DISTRESS. NO SOB ON ROOM AIR. O2 SAT 100%. RR EVEN/UNLABORED. CHEST EXPANSION SYMMETRICAL. NO C/O PAIN. IV WNL TO SAVITA, PATENT, FLUSHES WELL. NO N/V. SITTER AT BEDSIDE. SIDE RAILS UP X2. MASCORRO IN TACT DRAINING CLEAR/DANITA URINE. DRAINING TO GRAVITY WITH NO DEPENDENT LOOPS. PT IN ROOM CLOSE TO NURSES STATION. BED IN LOW POSITION. CALL LIGHT WITHIN REACH. WILL CONTINUE TO MONITOR.
--- NOTE | 2019-02-09 12:50 | NUR ---
PT LAYING IN BED. AA/OX4. NO C/O PAIN. NO SOB ON ROOM AIR. NO S/S OF ACUTE DISTRESS. NO CHEST PAIN. CALM/COOPERATIVE. IV WNL. IV FLUIDS FLOWING. BED IN LOW POSITION. CALL LIGHT WITHIN REACH. WILL CONTINUE TO MONITOR.
--- NOTE | 2019-02-09 16:49 | NUR ---
S/W Viktoria and stated that they are still waiting for psych MD to eval.
--- NOTE | 2019-02-09 17:03 | NUR ---
PT RESTING IN BED WITH BOTH EYES CLOSED. NO S/S OF ACUTE DISTRESS. NO SOB ON ROOM AIR. RR EVEN/UNLABORED. CHEST EXPANSION SYMMETRICAL. DROWSY, AROUSABLE TO PAINFUL STIMULI. TUGS ON LINES, AGITATED AT TIMES. BUE SOFT WRIST RESTRAINTS IN PLACE. PULSES +2 BUE/BLE. CAP REFILLS <3 SEC BUE/BLE. SKIN BUE WARM, DRY, INTACT, COLOR NORMAL FOR ETHNICITY. IV WNL SAVITA, IV FLUIDS FLOWING. BLOOD SUGAR 125. SITTER AT BEDSIDE. BED IN LOW POSITION. CALL LIGHT WITHIN REACH. SIDE RAILS UP X2. MASCORRO IN TACT DRAINING DANITA/CLEAR URINE. MASCORRO CARE PROVIDED. WILL CONTINUE TO MONITOR.
--- NOTE | 2019-02-09 18:20 | NUR ---
PT AGITATED, PULLING ON LINES, TRYING TO REMOVE LINES, RESTRAINTS IN TACT BUE, PT REORIENTED TO SURROUNDINGS, PT AA/OX1. DROWSY BUT EASILY AROUSABLE TO VERBAL STIMULI. FACE SYMMETRICAL. SPEECH GARBLED AT TIMES. STIMULATION DECREASED, PT RESTING IN BED WITH BOTH EYES CLOSED. NO S/S OF ACUTE DISTRESS. NO C/O OF PAIN. PULSES +2 BUE/BLE. CAP REFILLS <3 SEC BUE/BLE. NO EDEMA NOTED BUE/BLE. SKIN WNL BUE. IV WNL, IV FLUIDS FLOWING. RR EVEN/UNLABORED. CHEST EXPANSION SYMMETRICAL. SITTER AT BEDSIDE. SIDE RAILS UP X2. PT IN ROOM CLOSE TO NURSES STATION. BED IN LOW POSITION. CALL LIGHT WITHIN REACH. WILL ENDORSE TO ONCOMING SHIFT.
--- NOTE | 2019-02-09 20:17 | NUR ---
PT CURRENTLY RESTING IN BED, NO ACUTE DISTRESS. DROWSY, UNABLE TO ASSESS ORIENTATION. RESPONDS TO VERBAL STIMULI, SPEECH GARBLED. NO TELE, MED/SURG. PULSES PALPABLE IN ALL EXTREMITIES, NO EDEMA NOTED. LUNG SOUNDS CTA BILATERALLY, NO RESPIRATORY DISTRESS NOTED. BOWEL SOUNDS ACTIVE, LAST BM UNKNOWN. MASCORRO CATHETER IN PLACE. SKIN INTACT. IV PATENT AND INTACT. PT PREVIOUS STATED SUICIDAL IDEATION, AGITATED AT TIMES, PULLING AT LINES. BILATERAL SOFT WRIST RESTRAINTS IN PLACE, SITTER AT BEDSIDE. BED IN LOWEST POSITION, SIDE RAILS UP X2, CALL LIGHT WITHIN REACH. WILL CONTINUE TO MONITOR.
[2019-02-09 21:00] VITALS: BP 106/77
--- NOTE | 2019-02-10 00:42 | NUR ---
PT CURRENTLY RESTING IN BED, NO ACUTE DISTRESS. WILL CONTINUE TO MONITOR.
[2019-02-10 04:51] VITALS: BP 122/87
--- NOTE | 2019-02-10 05:39 | NUR ---
[facility] is still aware of patient and will continue to monitor RN notes, still pending psychiatric evaluation.
--- NOTE | 2019-02-10 06:28 | NUR ---
PT SLEPT PERIODICALLY THROUGHOUT NIGHT, NO ACUTE DISTRESS. ALL NEEDS MET AND ATTENDED TO. NO SIGNIFICANT CHANGES. IV PATENT AND INTACT. SITTER AT BEDSIDE. BED IN LOWEST POSITION, SIDE RAILS UP X2, CALL LIGHT WITHIN REACH. WILL ENDORSE CARE TO ONCOMING NURSE.
[2019-02-10 08:18] VITALS: BP 130/84
--- NOTE | 2019-02-10 08:43 | NUR ---
AM SCHEDULED MEDS GIVEN. PATIENT ASKED FOR MORE FOOD,JUICE AND SANDWICH PROVIDED. NOTED PATIENT OCCATIONALLY TOUCHING AND PULLING MASCORRO CATHETER, REMINDED PATIENT NOT TO PULL IT. SITTER 1:1 AT BEDSIDE. ELVER SOFT WRIST RESTRAINTS INPLACED WITH (+) CMS. IVF D5NS INFUSING WELL AT 80ML/HR TO SAVITA IV SITE.
--- NOTE | 2019-02-10 13:00 | NUR ---
NOTED FINISHED 50% OF LUNCH. MORE AWAKE AT THIS TIME. REORIENTATION PROVIDED. SLIGHTLY AGITATED AND ATTEMPETED TO GET OUT OF RESTRAINT. SITTER 1:1 AT BEDSIDE.
--- NOTE | 2019-02-10 14:48 | NUR ---
PATIENT APPEARS MORE AGITATED, ATTEMPTING TO REMOVE RESTRAINT AND MASCORRO CATHETER, ATIVAN 4MG IVP SLOWLY GIVEN AT THIS TIME. WILL CONTINUE TO MONITOR.
--- NOTE | 2019-02-10 15:19 | NUR ---
RESTING WITH EYES CLOSED, NO RESP DISTRESS NOTED. WILL CONTINUE TO MONITOR.
[2019-02-10 19:03] VITALS: BP 113/63
--- NOTE | 2019-02-10 20:21 | NUR ---
PT CURRENTLY RESTING IN BED, NO ACUTE DISTRESS. DROWSY, BUT ARROUSABLE. NO TELE, MED/SURG. DENIES CHEST PAIN. PULSES PALPABLE IN ALL EXTREMITIES, NO EDEMA NOTED. LUNG SOUNDS CTA BILATERALLY, DENIES SOB. BOWEL SOUNDS ACTIVE, LAST BM UNKNOWN. MASCORRO CATHETER IN PLACE, YELLOW URINE NOTED. SKIN INTACT. NO WEAKNESS NOTED. IV PATENT AND INTACT. SITTER AT BEDSIDE. PREVIOUS SUICIDAL IDEATION. PT AGITATED AND AGGRESSIVE AT TIMES, PULLING AT LINES, SPITTING AT STAFF. BILATERAL SOFT WRIST RESTRAINTS IN PLACE. BED IN LOWEST POSITION, SIDE RAILS UP X2, CALL LIGHT WITHIN REACH. WILL CONTINUE TO MONITOR.
--- NOTE | 2019-02-10 21:36 | NUR ---
Received report from Day shift. [facility] pig machine crane operator will continue to look for placement. Will contact with any update.
--- NOTE | 2019-02-11 00:40 | NUR ---
PT CURRENTLY RESTING IN BED, NO ACUTE DISTRESS. WILL CONTINUE TO MONITOR.
--- NOTE | 2019-02-11 02:58 | NUR ---
Contacted the following contracted facilities, no beds available: [facility], [facility], [facility], [facility].
[2019-02-11 05:39] VITALS: BP 115/69
--- NOTE | 2019-02-11 06:08 | NUR ---
PT SLEPT PERIODICALLY THROUGHOUT NIGHT, NO ACUTE DISTRESS. ALL NEEDS MET AND ATTENDED TO. NO SIGNIFICANT CHANGES. IV PATENT AND INTACT. PT AGGRESSIVE AT TIMES, BILATERAL SOFT WRIST RESTRAINTS IN PLACE, SITTER AT BEDSIDE. BED IN LOWEST POSITION, SIDE RAILS UP X2, CALL LIGHT WITHIN REACH. WILL ENDORSE CARE TO ONCOMING NURSE.
--- NOTE | 2019-02-11 07:30 | NUR ---
SEEN IN BED RESTING WITH EYES CLOSED. EASILY TO AROUSE, DROWSY, WENT BACK TO SLEEP. BREATHING E/U ON ROOM AIR. LUNG SOUND CTA. ELVER SOFT WRIST RESTRAINT INPLACE WITH(+) CMS. SITTER 1:1 AT BEDSIDE. IVF D5NS TO SAVITA INFUSING WELL AT 80ML/HR. SIDERAILS UP X2. ON 5150 HOLD.
[2019-02-11 08:53] VITALS: BP 136/83
--- NOTE | 2019-02-11 09:15 | NUR ---
Change of shift report given, awaiting updated hold. Will continue to help arrange placement
--- NOTE | 2019-02-11 15:00 | NUR ---
SEEN BY DOCTOR JANY. 5150HOLD CONTINUED.
--- NOTE | 2019-02-11 18:51 | NUR ---
NO ANY DISTRESS THROUGHOUT SHIFT. MORE ALERT, ABLE TO FEED SELF. EASILY GET AGITATED AND ANGRY. ATTEMPTED TO GET OUT OF BED AT TIMES. ELVER SOFT WRIST RESTRAINT INPLACED MONITORED PER RESTRAINTS PROTOCAL. SITTER 1:1 AT BEDSIDE. IVF D5NS INFUSING WELL TO SAVITA IV SITE.
[2019-02-11 18:53] VITALS: BP 128/65
--- NOTE | 2019-02-11 19:20 | NUR ---
RECIEVED PT IN NO ACUTE DISTRESS. DROWSY BUT AROUSABLE. AOX2, PERSON/PLACE. MED SURG. BREATHING E/U. CURRENTLY IN BILAT SOFT WRIST RESTRAINTS FOR RISK FOR INJURY/PULLING OF LINES. CMS PRESENT. ALL NEEDS MET. DENIES PAIN. IV TO SAVITA, PATENT. SITTER AT BEDSIDE. BED IN LOWEST POSITION, 2 SIDE RAILS UP, CALL LIGHT IN REACH. INSTRUCTED TO CALL FOR ASSISTANCE.
--- NOTE | 2019-02-11 21:13 | NUR ---
PT VERY AGITATED. STATES MISSING HIS BELONGINGS AND WANTS TO LEAVE. PT REMINDED OF 5150 STATUS. SOME OF BELONGINGS FOUND IN CLOSET, GIVEN TO PT. STATES MISSING ID CARD AND JACKET. PT MADE AWARE WE ARE STILL TRYING TO LOCATE THE REMAINDER OF HIS BELONGINGS. PT YELLING AND ACTIVELY HALLUCINATING, LOOKING AT CIELING AND CURSING. PT PLACED BACK ON RESTRAINTS. ATIVAN GIVEN PER EMAR. PT THEN C/O PAIN TO IV SITE, LEAKING. IV D/C INTACT. NEW ACCESS ESTABLISHED TO RUE 22G. PT CURRENTLY CALMER BUT CONTINUES TO HALLUCINATE, STARING AT CIELING AND TALKING. SITTER AT BEDSIDE.
[2019-02-11 22:00] VITALS: BP 104/76
--- NOTE | 2019-02-11 22:52 | NUR ---
PT SOAKED IN URINE. CLEANED/DRY. LINENS AND GOWN CHANGED.
--- NOTE | 2019-02-12 01:00 | NUR ---
RESTING IN BED WITH EYES CLOSED. BREATHING E/U. NO ACUTE DISTRESS NOTED. SITTER AT BEDSIDE. WILL CONTINUE TO MONITOR.
[2019-02-12 01:20] VITALS: BP 124/65
--- NOTE | 2019-02-12 01:39 | NUR ---
PT ATTEMPTING TO GET OUT OF BED AND REMOVE RESTRAINTS. EASILY AGITATED, LOOKING AT CIELING AND TALKING, ACTIVE HALLUCINATIONS. ATIVAN GIVEN SLOW IVP AT THIS TIME. SITTER AT BEDSIDE.
--- NOTE | 2019-02-12 02:26 | NUR ---
Still no vacancy at this time at any of the designated facilities , will continue to make calls to find placement.
[2019-02-12 05:14] VITALS: BP 120/74
--- NOTE | 2019-02-12 06:21 | NUR ---
NO ACUTE CHANGES. NO ACUTE DISTRESS NOTED. NEW ORDER FOR RESTRAINTS OBTAINED FROM DR. POSEY. SITTER AT BEDSIDE. WILL ENDORSE TO ONCOMING RN.
--- NOTE | 2019-02-12 08:30 | NUR ---
AT 0720 - RECEIVED PATIENT FROM NIGHT NURSE. SLEEPING. RESPIRATIONS REGULAR. IV INFUSING D5NS AT 80 ML/HR. PATIENT IS IN SOFT WRIST RESTRAINTS FOR PULLING AT TUBES AND LINES. OBSERVING CLOSELY.
[2019-02-12 09:11] VITALS: BP 121/77
--- NOTE | 2019-02-12 10:06 | NUR ---
AT 0845 - PATIENT NOW AWAKE. SITTING UP IN BED AND BEING ASSISTED WITH BREAKFAST. PATIENT IS COOPERATIVE AT THIS TIME. TOOK SCHEDULED MED.
--- NOTE | 2019-02-12 11:13 | NUR ---
PATIENT RESTING QUIETLY. EYES CLOSED. RESPIRATIONS REGULAR. REMAINS IN ELVER SOFT WRIST RESTRAINTS. 1:1 SITTER IN ROOM WITH PATIENT.
--- NOTE | 2019-02-12 11:51 | NUR ---
RECEIVED ORDER TO DISCHARGE PATIENT TO A [facility].
--- NOTE | 2019-02-12 12:57 | NUR ---
S/W Diane (RN) for patient. she [facility] 5150 for further placement
--- NOTE | 2019-02-12 13:02 | NUR ---
RECEIVED CALL FROM PATRICE AT [facility]. SHE REQUESTED THE RENEWED 5150 TO BE FAXED TO HER SO THAT SHE CAN ARRANGE FOR TRANSFER TO PSYCHIATRIC FACILLITY. IMMIGRATION LAW SPECIALIST, JACOBY IS FAXING INFORMATION.
--- NOTE | 2019-02-12 13:15 | NUR ---
Called the following facilities: [facility] s/w Harini no beds [place] s/w Ray no beds [facility] s/w Silvia no beds [facility] s/w Viki no beds [facility] s/w Mana no beds. Call back after 3 pm for discharges [facility] s/w anna no beds but refax packet [facility] s/w [place] no beds but refax packet
--- NOTE | 2019-02-12 15:27 | NUR ---
PATIENT SLEEPING MOST OF THE TIME. WAKES TO EAT AND VOID USING URINAL. CURRENTLY REMAINS COOPERATIVE.
--- NOTE | 2019-02-12 17:01 | NUR ---
PATIENT QUIET. LEFT WRIST OUT OF RESTRAINTS.
--- NOTE | 2019-02-12 17:02 | NUR ---
Fax packet to [facility]
[2019-02-12 18:28] VITALS: BP 126/78
--- NOTE | 2019-02-12 18:32 | NUR ---
PATIENT REMAINS CALM. LEFT WRIST IS OUT OF RESTRAIN. PATIENT APPEARS AGRESSIVE AT TIMES ONLY. VSS. GOOD APPETITE. EATING 100% OF FOOD ON MEAL TRAYS. HAS HAD LARGE, FORMED BM. PATIENT WASHED AND MADE COMFORTABLE. IV INFUSING D5NS AT 80ML/HR. 1:1 SITTER REMAINS WITH PATIENT. WILL ENDORSE CARE TO NIGHT NURSE.
--- NOTE | 2019-02-12 19:31 | NUR ---
SOFR WRIST RESTRAINT REMOVED,NOT NEEDED AT THIS TIME.
--- NOTE | 2019-02-12 19:41 | NUR ---
SOFT WRIST RESTRAINT OFF NOW,PATIENT COOPERATIVE,SAYS HE IS NOT REMOVIG STUFF.SITTER AT BEDSIDE.BREATHING EASY.D5NS AT 80 CC/ HOUR.MEDSURG.CALL LIGHT IN REACH.
--- NOTE | 2019-02-12 20:44 | NUR ---
WANTING TO GO HOME,UP IN HALLWAY,AT THIS TIME.CHARGE NURSE AWARE.
--- NOTE | 2019-02-12 20:50 | NUR ---
[facility] PD NOTIFIED AT THIS TIME/MENDEZ FOURNIER.R.N.
--- NOTE | 2019-02-12 21:00 | NUR ---
LIBBY BURTON SAYS HE TOOK OFF/STREET,LIBBY FRANCISCO ON IT.
--- NOTE | 2019-02-12 21:13 | NUR ---
DR SPAIN AWARE AND POLICY AND PLANNING MANAGER,RIKA VALDEZ.LIBBY FRANCISCO AWARE THAT THE PATIENT HAS SAVITA HEPLOCK.
--- NOTE | 2019-02-12 21:18 | NUR ---
PATIENT FOUND BY [facility] FRANCISCO BACK TO [facility] BUT FRED SAYS HE HAS TO GO BACK TO ER.TALKING TO LAMINATION SPINNER NOW.
== END 2019-02-12 21:40 | DRG 750 ==
LOC: ED 06:46 → IC 10:49 → MU 10:49 → IC 20:07 → MU 02-09 11:08
PROVIDERS: Specialist; ADMIT Internal Medicine
DX: F25.0 Schizoaffective disorder, bipolar type (principal); Z78.1 Physical restraint status; E11.9 Type 2 diabetes mellitus without complications; F12.10 Cannabis abuse, uncomplicated; F15.10 Other stimulant abuse, uncomplicated; I10 Essential (primary) hypertension; Z59.0 Homelessness; Z88.5 Allergy status to narcotic agent
CPT/HCPCS: 82962; G0378; J2060; J3486; J7030; J7042

== ENCOUNTER 2019-02-12 21:26 | Inpatient (IN) | payer OTHER ==
[~2019-02-12] VITALS: Ht 172.7 cm; Wt 72.0 kg
[2019-02-12 21:35] VITALS: Ht 172.7 cm; Wt 72.0 kg
--- NOTE | 2019-02-12 21:45 | NUR ---
PT TO ED FOR MEDICAL CLEARCE. PT WAS ON 2ND FLOOR MED/SURG FLOOR ON A 5150 HOLD. PT RAN FROM 2ND FLOOR AND OUT OF HOSPITAL THROUGH ED DOORS. PT WAS FOUND ON CAMPUS AND RETURNED TO ED FOR MEDICAL CLEARANCE PRIOR TO BEING RETURNED TO 2ND FLOOR.
--- NOTE | 2019-02-12 22:00 | NUR ---
PT REQESTED A SANDWICH AND MILK. PT WAS PROVIDED FOOD. PT STS HE JUST WANTS TO EAT THEN SLEEP. PT STS THE BLOOD PRESSURE CUFF IS TOO HARD ON HIS ARM. BLOOD PRESSURE CUFF REMOVED FOR PT COMFORT. PT IN SIGHT OF NURSES STATION. WILL CONTINUE TO MONITOR.
--- NOTE | 2019-02-13 00:15 | NUR ---
PT LAYING ON GURNEY IN POSITION OF COMFORT PT CONTINUALLY CHANGES POSITIONS. NO S/S OF DISTRESS. RESP E/U. COMFORT MEASURES IMPLEMENTED. WILL CONTINUE TO MONTIOR.
--- NOTE | 2019-02-13 00:35 | NUR ---
REPORT GIVEN TO ARBEN QUIGLEY TO ASSUME CARE
--- NOTE | 2019-02-13 00:53 | NUR ---
PT TRANSFERRED TO MED SURG FLOOR ACCOMPANIED BY EMT. NO S/S OF DISTRESS. RESP E/U. IV SITE PATENT PT DENIES PAIN OR DISCOMFORT TO SITE. REPORT GIVEN TO ARBEN
--- NOTE | 2019-02-13 00:53 | NUR ---
RECEIVED FROM ED,PUT IN ROOM 244 B AND MADE COMFORTABLE.MEDSURG PATIENT.JESÚS WILL ADMIT PATIENT,THANK YOU.ROMERO IN HIS SAVITA.HE MUMBLES WHEN JESÚS INTERVIEWING HIM.
[2019-02-13 01:00] VITALS: BP 124/73
--- NOTE | 2019-02-13 01:11 | NUR ---
RECEIVED PT FROM ER, PT ADMIT FOR SUICIDAL IDEA. PT WAS ENLOPE FROM MST FLOOR AND BROUGHT BACK TO ER. PT IS CURRENTLY A/O X2, CONFUSED, DROWSY. ONLY RESPONSIVE TO ONLY NAME AND PLACE. GARBLED SPEECH. BUT PT STATE HE STILL HEARING VOICE. BUT NO SUICIDAL THOUGHS AT THIS MOMENT, LUNG SOUND CLEAR BILATERAL, NO COUGH, NO SOB. BOWEL SOUND PRESENT ALL 4 QUADRANTS, NO DISTENTION, NO TENDER. PEDAL PULSE PRESENT BOTH FEET, NO EDEMA, IV AT RIGHT UPPER ARM, DRESSING INTACT, SITTER AT BEDSITE, ALL ADLS ASSIST, ALL NEED MET, CALL LIGHT IN REACH, WILL COTNINUE TO MONITOR.
--- NOTE | 2019-02-13 01:38 | NUR ---
NS AT 100 CC/ HOUR INITIATED,SAME IV SITE.
--- NOTE | 2019-02-13 03:44 | NUR ---
PATIENT REFUSED LAB WORKS AT THIS TIME.SAYS,NO,NO.
--- NOTE | 2019-02-13 03:57 | NUR ---
still no beds available at this time , will continue to look for placement , Guanaco THEODOREsalesforce consultant nurse made aware.
--- NOTE | 2019-02-13 05:30 | NUR ---
PT REFUSED EKG.
[2019-02-13 06:01] VITALS: BP 124/75
--- NOTE | 2019-02-13 06:15 | NUR ---
WANTED T IV OFF,DISCONNECTED.
--- NOTE | 2019-02-13 06:16 | NUR ---
PATIENT WANTING IV DISCONNECTD FOR NOW.WILL ENDORSE.CHARGE NURSE AWARE.
--- NOTE | 2019-02-13 06:22 | NUR ---
PATIENT IN HALLWAY,WANTED TO GET OUT OF HERE.HEPLOCK REMOVED.CHARGE NURSE TALKING TO HIM,FLOUR INSPECTOR AT BEDSIDE.
--- NOTE | 2019-02-13 06:24 | NUR ---
HEPLOCK AND ARM BAND REMOVED.STILL IN HALLWAY.
--- NOTE | 2019-02-13 06:24 | NUR ---
DR JAMES IN THE ROOM NOW,TALKING TO PATIENT.
--- NOTE | 2019-02-13 06:28 | NUR ---
WANTING HIS BELONGINGS BUT NOT HERE.FRED TALKING TO HIM.SITTER AT BEDSIDE FOR SAFETY.
--- NOTE | 2019-02-13 06:40 | NUR ---
PATIENT OUT OF THE FLOOR STILL,DOWNSTAIR.
--- NOTE | 2019-02-13 06:40 | NUR ---
BACK TO THE FLOOR AT THIS TIME,SECURITY OFFICERS WITH HIM,ESCORTED IN THE ROOM.
--- NOTE | 2019-02-13 07:41 | NUR ---
REPORT RECEIVED FROM LINDA CYLINDER VALVE REPAIRER RN. PATIENT SITTING IN CHAIR. AWAKE, ALERT, AND ORIENTED X 3. PATIENT IS NON-RESPONSIVE TO VERBAL STIMULATION. SITTER AT BEDSIDE. NO SIGNS OF DISTRESS. NO C/O PAIN. WILL CONTIUNUE TO MONITOR. CALL LIGHT WITHIN REACH.
[2019-02-13 08:42] VITALS: BP 139/70
--- NOTE | 2019-02-13 10:19 | NUR ---
02/13/19, 45: PATIENT ON 5150 HOLD WALKED OUT OF THE HOSPITAL WITH SITTER AND SECURITY MONITORING. LIBBY FRANCISCO CALLED AND ARRIVED TO PARKING LOT WHERE PATIENT WAS SITTING. PATIENT ESCORTED BACK TO ROOM BY SECURITY, SITTER, AND TWO NURSES. 02/13/19, 1020: SOFT RESTRAINT ORDER OBTAINED BY PHYSICIAN FOR PATIENT DUE TO DANGER TO SELF AND OTHERS. SITTER AT BEDSIDE. WILL CONTINUE TO MONITOR.
--- NOTE | 2019-02-13 11:19 | NUR ---
PATIENT REFUSED IV INSERTION. PHYSICIAN NOTIFIED.
--- NOTE | 2019-02-13 19:05 | NUR ---
RECEIVED REPORT FROM SUZANNA THEODORE. WILL RESUME CARE.
--- NOTE | 2019-02-13 19:25 | NUR ---
RECEIVED PT AAOX2 TO PERSON AND PLACE. PT ABLE TO FOLLOW COMMANDS AND MAKE NEEDS KNOWN. BREATHING E/U. ON RA. LUNG SOUNDS CTA. S1S2 AUSCULTATED WITH NO MURMURS NOTED. PT STATES NO PAIN AT THIS TIME. CAP REFILL <3 SEC. NO EDEMA NOTED. PULSES PALPABLE. SKIN INTACT AND APPROPRIATE FOR RACE. ABDOMEN FLAT, NONTENDER. BS ACTIVE X 4. PT ON REGULAR DIET AND TOLERATING WELL. PT HAS MILD GENERALIZED WEAKNESS. SOFT WRIST RESTRAINTS IN PLACE DUE TO PT BEING RESTLESS, FOR PT SAFETY. SOFT WRIST RESTRAINTS IN PLACE, CMS INTACT. SITTER AT BEDSIDE. BED IN LOW POSITION. CALL LIGHT WITHIN REACH. WILL CONTINUE TO MONITOR.
--- NOTE | 2019-02-13 20:20 | NUR ---
PT REFUSING IV FLUIDS. RISKS AND BENEFITS EXPLAINED AND PT IS STILL REFUSING. ON REGULAR DIET AND EATING AND DRINKING AT THIS TIME.
[2019-02-13 21:00] VITALS: BP 123/69
--- NOTE | 2019-02-14 00:33 | NUR ---
YARD SPECIALIST AT BEDSIDE FOR BLOOD DRAW.
[2019-02-14 00:45] LABS: BASOPHIL % 0.8 % (0-2)
[2019-02-14 00:47] LABS: CARBON DIOXIDE 26.4 mmol/L (21-32); CHLORIDE SERUM 106 mmol/L (98-107); CREATININE SERUM 0.7 mg/dL (0.7-1.3); GFR1 > 60 mL/min; GLUCOSE SERUM 113 mg/dL (74-106); POTASSIUM SERUM 4.1 mmol/L (3.5-5.1); SODIUM SERUM 140 mmol/L (136-145)
[2019-02-14 00:52] LABS: PLATELET COUNT 411 x10^3mcL (130-400); RED CELL DISTRIBUTION WIDTH 19.7 % (11.5-14.5)
--- NOTE | 2019-02-14 02:02 | NUR ---
Notified Guanaco THEODORE at this time there are still no beds for placement, will continue to make calls and follow up with the designated facilities.
--- NOTE | 2019-02-14 03:30 | NUR ---
RESTRAINTS OFF AT THIS TIME. PT CALM RESTING IN BED. SITTER STILL AT BEDSIDE.
[2019-02-14 05:45] VITALS: BP 126/82
--- NOTE | 2019-02-14 06:02 | NUR ---
PT [facility]EMPT[facility]. WHEN WALKING OUT OF HOSPITAL DOORS [facility] GUARDS SAW HIM IMMEDIATELY AND BROUGHT HIM BACK TO THE UNIT. PT PT BACK ON BILATERAL SOFT WRIST RESTRAINTS.
--- NOTE | 2019-02-14 07:00 | NUR ---
DR. LOCO MADE AWARE THAT PT TRIED TO ELOPE.
--- NOTE | 2019-02-14 07:00 | NUR ---
DR. LOCO MADE AWARE PT TRIED TO ELOPE.
--- NOTE | 2019-02-14 07:15 | NUR ---
RECEIVED PT FROM MARRY RN. PT AA/OX3, FOLLOWS COMPLEX COMMANDS, SELECTIVELY MUTE. PT APPEARS RESTLESS/ANXIOUS. PT ON BILATERAL UPPER EXTREMITY SOFT WRIST RESTRAINTS. CIRCULATION WNL, PULSES +2 BUE/BLE. CAP REFILLS<3 SEC. NO S/S OF ACUTE DISTRESS. NO SOB ON ROOM AIR. RR EVEN/UNLABORED. CHEST EXPANSION SYMMETRICAL. REFUSES TELE. REFUSES IV FLUIDS. PHYSICIAN AWARE. NO CHEST PAIN. SITTER AT BEDSIDE. NO VERBALIZATION OF SUICIDAL IDEATION AT THIS TIME. BED IN LOW POSITION. CALL LIGHT WITHIN REACH. WILL CONTINUE TO MONITOR.
--- NOTE | 2019-02-14 07:28 | NUR ---
[facility] still actively working on finding placement for this pt. Will contact with any updates.
[2019-02-14 09:00] VITALS: BP 119/81
--- NOTE | 2019-02-14 09:00 | NUR ---
RESTRAINTS REMOVED, PT AA/OX3, CALM/COOPERATIVE AT THIS TIME. REORIENTED TO SURROUNDINGS, STIMULI DECREASED, ROOM CLOSE TO NURSES STATION. CALL LIGHT WITHIN REACH. SITTER AT BEDSIDE. ALTERNATIVES ATTEMPTED AND EFFECTIVE AT THIS TIME. NO S/S OF ACUTE DISTRESS. NO SOB ON ROOM AIR. BED IN LOW POSITION. CALL LIGHT WITHIN REACH. WILL CONTINUE TO MONITOR.
--- NOTE | 2019-02-14 10:57 | NUR ---
PT DELUSIONAL, STATES HE SEES OTHER "DIMENSIONS", RESTLESS, FLIGHT OF THOUGHTS. DENIES SUICIDAL IDEATION AT THIS TIME. TALKING TO DR. GARZA. NO S/S OF ACUTE DISTRESS. SITTING AT SIDE OF BED. SITTER AT BEDSIDE. AA/OX3 (FORGETFUL), FOLLOWS COMPLEX COMMANDS, RESPONDS TO VERBAL STIMULI, FACE SYMMETRICAL, SPEECH CLEAR. NO S/S OF ACUTE DISTRESS. WILL CONTINUE TO MONITOR.
--- NOTE | 2019-02-14 12:09 | NUR ---
Called the following facilities: [facility] s/w [place]. Patient has been declined at their facilty due to unable to safely manage, high aquity and possible placememt issue. [facility] s[facility] no beds [facility] no beds
--- NOTE | 2019-02-14 12:12 | NUR ---
[facility] s/w [place], refaxed packet
--- NOTE | 2019-02-14 13:00 | NUR ---
PT RESTING IN BED WITH BOTH EYES CLOSED. NO S/S OF ACUTE DISTRESS. NO SOB ON ROOM AIR. NO C/O PAIN. SITTER AT BEDSIDE. BED IN LOW POSITION. CALL LIGHT WITHIN REACH. NICOTINE PATCH IN PLACE TO LUE. PT IN ROOM CLOSE TO NURSES STATION. WILL CONT. TO MONITOR.
--- NOTE | 2019-02-14 16:07 | NUR ---
PT LEFT FROM HOSPITAL, SEEN [address]OSS[address] [place]OWARDS [place] [employer] BY KAYLA SCHWAB. DR. GARZA MADE AWARE. PT AA/OX3, FOLLOWING COMPLEX COMMANDS, RESPONDING TO VERBAL STIMULI, NO S/S OF ACUTE DISTRESS. PT CAME TO NURSES STATION, ACCOMPANIED BY SITTER/KAYLA SCHWAB, PT STATED "I NEED TO GO ROUSTABOUT CREW LEADER MY STUFF FROM [facility] OR THEY'RE GOING TO THROW IT AWARE" ATTEMPTED TO HAVE PT RETURN BACK TO ROOM. PT REFUSED TO RETURN BACK TO ROOM. SECURITY MADE AWARE OF PT ELOPING. FORK LIFT MECHANIC QIANA HENDRIX. [facility] CALLED AND MADE AWARE OF PT ELOPING WITH 5150 HOLD.
[2019-02-14 16:45] VITALS: BP 119/88
--- NOTE | 2019-02-14 16:45 | NUR ---
PT BROUGHT BACK BY [facility] TO EMERGENCY DEPARTMENT. ESCORTED BACK TO ROOM. AMBULATORY WITH FULL ROM. GAIT STEADY. PT AA/OX4. AUTOMOTIVE ENGINEER QIANA AWARE. DR. GARZA MADE AWARE. NO S/S OF ACUTE DISTRESS. VS STABLE: BP 119/88, HR 112, TEMP 98.4F, O2 SAT 97% ON ROOM AIR, RR 20. NO SOB ON ROOM AIR. NO CHEST PAIN. CALM AT THIS TIME. SITTER AT BEDSIDE. WILL CONT. TO MONITOR. PT IN ROOM CLOSE TO NURSES STATION.
--- NOTE | 2019-02-14 18:09 | NUR ---
PT WANTED TO SMOKE. PT EDUCATED ON HOSPITAL SMOKING POLICY, REFUSES TO COMPLY WITH POLICY. [facility] FOLLOWED BY RATTLING MACHINE TENDER AND SECURITY VISIBLY ABLE TO SEE PT SMOKING FROM WINDOW. PT NONCOMPLIANT.
--- NOTE | 2019-02-14 18:20 | NUR ---
PT BROUGHT BACK FROM [facility] BY SECURITY. PT AA/OX4. NO S/S OF ACUTE DISTRESS. PT SITTING ON FLOOR PUTTING BELONGINGS INTO BACKPACK. SITTER AT BEDSIDE. NO VERBALIZATION OF SUICIDAL/HOMICIDAL IDEATION. NO SOB ON ROOM AIR. NO C/O PAIN. REFUSES TELE. REFUSES IV THERAPY. NONCOMPLIANT. WILL ENDORSE TO ONCOMING SHIFT.
--- NOTE | 2019-02-14 18:35 | NUR ---
PT BROUGHT BACK FROM [facility] BY SECURITY. PT AA/OX3. NO S/S OF ACUTE DISTRESS. PT SITTING ON FLOOR PUTTING BELONGINGS INTO BACKPACK. SITTER AT BEDSIDE. NO VERBALIZATION OF SUICIDAL/HOMICIDAL IDEATION. NO SOB ON ROOM AIR. NO C/O PAIN. REFUSES TELE. REFUSES IV THERAPY. NONCOMPLIANT. WILL ENDORSE TO ONCOMING SHIFT.
[2019-02-14 20:19] VITALS: BP 146/95
--- NOTE | 2019-02-14 20:22 | NUR ---
PT LEFT AMA REFUSED TO [facility] STATED' I AM GOING TO HAVE CIGARETTE THEN GO TO [place] MY DAD KNOWS WHERE I'M GOING " CHARGE NURSE AND INTERACTIVE DESIGNER AWARE .
== END 2019-02-14 20:42 | disposition left against medical advice (07) | DRG 812 ==
LOC: ED 21:26 → MU 02-13 00:20
PROVIDERS: Family Medicine; ADMIT Internal Medicine
DX: T40.7X1A Poisoning by cannabis (derivatives), accidental (unintentional), initial encounter (principal); G92 Toxic encephalopathy; E44.0 Moderate protein-calorie malnutrition; F20.9 Schizophrenia, unspecified; E11.9 Type 2 diabetes mellitus without complications; D50.9 Iron deficiency anemia, unspecified; E02 Subclinical iodine-deficiency hypothyroidism; F17.210 Nicotine dependence, cigarettes, uncomplicated; F31.9 Bipolar disorder, unspecified; F19.10 Other psychoactive substance abuse, uncomplicated; I10 Essential (primary) hypertension; Y92.098 Other place in other non-institutional residence as the place of occurrence of the external cause; Z88.8 Allergy status to other drugs, medicaments and biological substances; Z79.899 Other long term (current) drug therapy; Z68.22 Body mass index [BMI] 22.0-22.9, adult; Z79.84 Long term (current) use of oral hypoglycemic drugs
CPT/HCPCS: G0378; J7030; Q0092

== ENCOUNTER 2019-02-24 05:09 | Emergency (ER) | payer OTHER ==
[~2019-02-24] VITALS: Ht 182.9 cm; Wt 68.5 kg
[2019-02-24 05:18] VITALS: Ht 182.9 cm; Wt 68.5 kg
[2019-02-24 07:00] LABS: BASOPHIL % 0.2 % (0-2)
[2019-02-24 07:10] LABS: PLATELET COUNT 489 x10^3mcL (130-400); RED CELL DISTRIBUTION WIDTH 20.1 % (11.5-14.5)
[2019-02-24 07:22] LABS: CALCIUM 7.6 mg/dL (8.5-10.1); CHLORIDE SERUM 104 mmol/L (98-107); CREATININE SERUM 0.6 mg/dL (0.7-1.3); GFR1 > 60 mL/min; GLUCOSE SERUM 114 mg/dL (74-106); POTASSIUM SERUM 3.9 mmol/L (3.5-5.1); SODIUM SERUM 138 mmol/L (136-145)
[2019-02-24 07:24] LABS: AMPHETAMINE QUAL UR NONE DETECTED (See below)
[2019-02-24 07:30] VITALS: BP 134/67
[2019-02-24 07:31] LABS: ALBUMIN 2.6 g/dL (3.4-5.0); ALKALINE PHOSPHATASE 107 U/L (46-116); ALT/SGPT 28 U/L (16-63); AST/SGOT 22 U/L (15-37); BILIRUBIN TOTAL 0.18 mg/dL (0.20-1.00); TOTAL PROTEIN, SERUM 6.7 g/dL (6.4-8.2)
[2019-02-24 08:03] LABS: burr cell (echinocyte) 1+; rbc morphology (normal/abnorm) ABNORMAL (NORMAL)
== END 2019-02-24 07:30 | disposition home or self-care (01) ==
LOC: ED 05:09
PROVIDERS: Emergency Medicine
DX: R07.89 Other chest pain (principal); I10 Essential (primary) hypertension; E11.9 Type 2 diabetes mellitus without complications; Z88.8 Allergy status to other drugs, medicaments and biological substances
CPT/HCPCS: 36415; 82962

== ENCOUNTER 2019-02-26 21:53 | Emergency (ER) | payer OTHER ==
[~2019-02-26] VITALS: Ht 182.9 cm; Wt 63.5 kg
[2019-02-26 22:01] VITALS: Ht 182.9 cm; Wt 63.5 kg
[2019-02-27 00:02] VITALS: BP 141/102
== END 2019-02-27 00:02 | disposition home or self-care (01) ==
LOC: ED 21:53
DX: R53.1 Weakness (principal); F12.10 Cannabis abuse, uncomplicated; I10 Essential (primary) hypertension; E11.9 Type 2 diabetes mellitus without complications; Z59.0 Homelessness; Z88.8 Allergy status to other drugs, medicaments and biological substances

== ENCOUNTER 2019-03-11 19:33 | Emergency (ER) | payer OTHER ==
[~2019-03-11] VITALS: Ht 165.1 cm; Wt 77.1 kg
[2019-03-11 19:35] VITALS: Ht 165.1 cm; Wt 77.1 kg
[2019-03-11 20:57] VITALS: BP 114/86
== END 2019-03-11 20:57 | disposition home or self-care (01) ==
LOC: ED 19:33
DX: S72.112A Displaced fracture of greater trochanter of left femur, initial encounter for closed fracture (principal); Z88.8 Allergy status to other drugs, medicaments and biological substances; W19.XXXA Unspecified fall, initial encounter; Y93.89 Activity, other specified; Y92.89 Other specified places as the place of occurrence of the external cause; Y99.8 Other external cause status
CPT/HCPCS: J1885

== ENCOUNTER 2019-03-12 16:20 | Emergency (ER) | payer OTHER ==
[~2019-03-12] VITALS: Ht 175.3 cm; Wt 72.6 kg
[2019-03-12 16:34] VITALS: Ht 175.3 cm; Wt 72.6 kg
[2019-03-12 17:44] LABS: BASOPHIL % 0.9 % (0-2); PLATELET COUNT 387 x10^3mcL (130-400)
[2019-03-12 17:50] LABS: CARBON DIOXIDE 31.2 mmol/L (21-32); CHLORIDE SERUM 103 mmol/L (98-107); CREATININE SERUM 0.8 mg/dL (0.7-1.3); GFR1 > 60 mL/min; GLUCOSE SERUM 80 mg/dL (74-106); POTASSIUM SERUM 3.9 mmol/L (3.5-5.1); SODIUM SERUM 137 mmol/L (136-145)
[2019-03-12 17:59] LABS: ALBUMIN 2.3 g/dL (3.4-5.0); ALKALINE PHOSPHATASE 120 U/L (46-116); ALT/SGPT 18 U/L (16-63); AST/SGOT 20 U/L (15-37); BILIRUBIN TOTAL 0.2 mg/dL (0.20-1.00); CHOLESTEROL 97 mg/dL (<200); TOTAL PROTEIN, SERUM 6.1 g/dL (6.4-8.2)
[2019-03-12 18:56] VITALS: BP 111/70
== END 2019-03-12 18:56 | disposition home or self-care (01) ==
LOC: ED 16:20
PROVIDERS: Specialist
DX: D64.9 Anemia, unspecified (principal); R53.1 Weakness; F15.10 Other stimulant abuse, uncomplicated; F10.10 Alcohol abuse, uncomplicated; I10 Essential (primary) hypertension; E11.9 Type 2 diabetes mellitus without complications; Z88.8 Allergy status to other drugs, medicaments and biological substances
CPT/HCPCS: 82962; G0480; J7030; Q0092

== ENCOUNTER 2019-03-13 10:20 | Emergency (ER) | payer OTHER ==
[~2019-03-13] VITALS: Ht 182.9 cm; Wt 75.3 kg
[2019-03-13 10:24] VITALS: BP 134/78; Ht 182.9 cm; Wt 75.3 kg
== END 2019-03-13 11:26 | disposition home or self-care (01) ==
LOC: ED 10:20
DX: S72.112A Displaced fracture of greater trochanter of left femur, initial encounter for closed fracture (principal); I10 Essential (primary) hypertension; E11.9 Type 2 diabetes mellitus without complications; F17.210 Nicotine dependence, cigarettes, uncomplicated; Z98.890 Other specified postprocedural states; Z88.8 Allergy status to other drugs, medicaments and biological substances; Z71.6 Tobacco abuse counseling; Y04.8XXA Assault by other bodily force, initial encounter; Y93.89 Activity, other specified; Y92.89 Other specified places as the place of occurrence of the external cause; Y99.8 Other external cause status
CPT/HCPCS: 99406; J1885

== ENCOUNTER 2019-03-17 19:55 | Emergency (ER) | payer OTHER ==
[~2019-03-17] VITALS: Ht 190.5 cm; Wt 75.3 kg
[2019-03-17 20:36] VITALS: Ht 190.5 cm; Wt 75.3 kg
[2019-03-17 20:43] LABS: BASOPHIL % 1.2 % (0-2)
[2019-03-17 20:53] LABS: PLATELET COUNT 460 x10^3mcL (130-400); RED CELL DISTRIBUTION WIDTH 22.5 % (11.5-14.5)
[2019-03-17 21:16] LABS: rbc morphology (normal/abnorm) ABNORMAL (NORMAL)
[2019-03-17 21:43] LABS: CALCIUM 7.3 mg/dL (8.5-10.1); CARBON DIOXIDE 25.4 mmol/L (21-32); CHLORIDE SERUM 105 mmol/L (98-107); CREATININE SERUM 0.8 mg/dL (0.7-1.3); GFR1 > 60 mL/min; GLUCOSE SERUM 111 mg/dL (74-106); POTASSIUM SERUM 3.4 mmol/L (3.5-5.1); SODIUM SERUM 139 mmol/L (136-145)
[2019-03-17 21:51] LABS: ALKALINE PHOSPHATASE 126 U/L (46-116); ALT/SGPT 20 U/L (16-63); AST/SGOT 22 U/L (15-37); BILIRUBIN TOTAL 0.1 mg/dL (0.20-1.00); TOTAL PROTEIN, SERUM 6.3 g/dL (6.4-8.2)
[2019-03-17 21:59] LABS: ALBUMIN 2.5 g/dL (3.4-5.0)
[2019-03-18 11:53] LABS: AMPHETAMINE QUAL UR POSITIVE (See below)
[2019-03-18 19:45] VITALS: BP 144/84
== END 2019-03-18 20:20 ==
LOC: ED 19:55
PROVIDERS: Emergency Medicine
DX: F20.9 Schizophrenia, unspecified (principal); Z76.0 Encounter for issue of repeat prescription
CPT/HCPCS: 36415; G0480

== ENCOUNTER 2019-04-19 12:08 | Emergency (ER) | payer OTHER ==
[~2019-04-19] VITALS: Ht 182.9 cm; Wt 73.0 kg
[2019-04-19 12:09] VITALS: BP 126/72; Ht 182.9 cm; Wt 73.0 kg
== END 2019-04-19 12:27 | disposition home or self-care (01) ==
LOC: ED 12:08
DX: Z02.89 Encounter for other administrative examinations (principal)

== ENCOUNTER 2019-05-25 14:58 | Emergency (ER) | payer OTHER ==
[~2019-05-25] VITALS: Ht 182.9 cm; Wt 69.4 kg
[2019-05-25 15:02] VITALS: Ht 182.9 cm; Wt 69.4 kg
[2019-05-25 16:11] VITALS: BP 138/93
== END 2019-05-25 16:11 | disposition home or self-care (01) ==
LOC: ED 14:58
DX: M25.551 Pain in right hip (principal); I10 Essential (primary) hypertension; E11.9 Type 2 diabetes mellitus without complications; Z88.8 Allergy status to other drugs, medicaments and biological substances; Z76.0 Encounter for issue of repeat prescription; Z98.890 Other specified postprocedural states

== ENCOUNTER 2019-06-02 13:05 | Emergency (ER) | payer OTHER ==
[~2019-06-02] VITALS: Ht 182.9 cm; Wt 72.1 kg
[2019-06-02 13:49] VITALS: Ht 182.9 cm; Wt 72.1 kg
[2019-06-02 15:15] VITALS: BP 136/86
== END 2019-06-02 15:15 | disposition home or self-care (01) ==
LOC: ED 13:05
DX: M25.551 Pain in right hip (principal); I10 Essential (primary) hypertension; Z98.890 Other specified postprocedural states

== ENCOUNTER 2019-07-07 04:14 | Emergency (ER) | payer OTHER ==
[~2019-07-07] VITALS: Ht 182.9 cm; Wt 67.8 kg
[2019-07-07 04:30] VITALS: Ht 182.9 cm; Wt 67.8 kg
[2019-07-07 04:53] VITALS: BP 127/94
== END 2019-07-07 04:53 | disposition home or self-care (01) ==
LOC: ED 04:14
DX: S76.011A Strain of muscle, fascia and tendon of right hip, initial encounter (principal); I10 Essential (primary) hypertension; X58.XXXA Exposure to other specified factors, initial encounter; Y93.89 Activity, other specified; Y92.89 Other specified places as the place of occurrence of the external cause; Y99.8 Other external cause status